=== PATIENT | male | born 1975 | race Caucasian/White ===

== ENCOUNTER 2017-06-13 08:52 | Emergency (ER) | payer SELFPAY ==
[~2017-06-13] VITALS: Ht 203.2 cm; Wt 75.0 kg
[2017-06-13] MEDS ORDERED: KETOROLAC 30MG/ML VIAL IV ONE (09:30)
[2017-06-13 10:59] VITALS: BP 136/71
== END 2017-06-13 11:04 | disposition home or self-care (01) ==
LOC: ER 09:15
DX: M54.9 Dorsalgia, unspecified (principal); M54.2 Cervicalgia; M79.632 Pain in left forearm; V03.10XA Pedestrian on foot injured in collision with car, pick-up truck or van in traffic accident, initial encounter; Y93.89 Activity, other specified; Y92.521 Bus station as the place of occurrence of the external cause; R03.0 Elevated blood-pressure reading, without diagnosis of hypertension
CPT/HCPCS: 72125; 73090; 96374; 99284; J1885